=== PATIENT | female | born 1985 | race Caucasian/White ===

== ENCOUNTER 2016-05-14 08:19 | Emergency (ER) | payer OTHER ==
[~2016-05-14] VITALS: Ht 167.6 cm; Wt 100.0 kg
[~2016-05-14 08:19] MED LIST: CELEBREX200 MG PO; CITALOPRAM HBR20 MG; CLONAZEPAM0.5 MG; DEPO-PROVER150 MG/ML IM; FLOMAX0.4 MG PO; HYDROCODON-ACE1 EAC7 PO; IBUPROFEN200 M1 PO; IBUPROFEN600 MG PO; KLONOPIN0.5 M1 PO; LEVAQUIN500 MG PO; LEXAPRO10 MG PO; MOTRIN800 MG PO; NAPROSYN500 MG PO; REMERON15 M2 PO; SKELAXIN800 MG PO; TYLENOL EXTRA500 MG PO; ULTRAM50 MG PO; ZOLOFT50 MG PO
[2016-05-14 09:08] LABS: BASOPHIL COUNT 0.1 K/uL (0-0.1); EOSINOPHIL (%) 1.7 % (0-5); EOSINOPHIL COUNT 0.2 K/uL (0-0.3); HEMATOCRIT 46.3 % (36.0-46.0); IMMATURE GRANULOCYTE (%) 0.2 % (0.0-0.7); IMMATURE GRANULOCYTE COUNT 0.2 K/uL; LYMPHOCYTE COUNT 3.2 K/uL (1.0-2.8); MCH 30.9 PG (29.0-34.0); MCHC 36.1 G/DL (30.0-36.0); MCV 85.7 FL (83-99); MONOCYTE (%) 6.8 % (3-12); MONOCYTE COUNT 0.7 K/uL (0-0.8); NEUTROPHIL (%) 58.5 % (45-76); NEUTROPHIL COUNT 5.8 K/uL (1.8-6.4); PLATELET COUNT 269 K/uL (156-360); RBC DIS.WIDTH-CV 13.1 % (11.8-14.6); RBC DIS.WIDTH-SD 40.7 % (39-53); WHITE BLOOD COUNT 9.8 K/uL (4.1-10.2)
[2016-05-14 09:46] LABS: CHLORIDE 108 mEq/L (99-109); POTASSIUM 3.5 mEq/L (3.7-5.4); SODIUM 142 mEq/L (136-147)
[2016-05-14 09:48] LABS: GLUCOSE 85 mg/dL (70-99)
[2016-05-14 09:49] LABS: ANION GAP 12 MEQ/L (2-14)
[2016-05-14 09:50] LABS: TOTAL BILIRUBIN 0.5 mg/dL (0.0-1.0)
[2016-05-14 09:51] LABS: ALKALINE PHOSPHATASE 75 IU/L (3-129)
[2016-05-14 09:52] LABS: GFR ESTIMATE (CALCULATED) > 59 mL/min/
[2016-05-14 09:53] LABS: UREA NITROGEN (BUN) 7 mg/dL (9-23)
[2016-05-14 09:55] LABS: LIPASE 23 U/L (1.0-51.0)
[2016-05-14] MEDS ORDERED: TIZANIDINE HCL4 M1 PO (09:59)
[2016-05-14] MEDS ORDERED: PHENTERMINE H37.5 MG PO (10:00)
[2016-05-14] MEDS ORDERED: LYRICA75 MG PO (10:00)
[2016-05-14] MEDS ORDERED: TIZANIDINE HCL2 MG PO (10:01)
[2016-05-14 10:34] LABS: ADD MIUA? YES; BILIRUBIN NEGATIVE; BLOOD SMALL; COLOR STRAW ((YELLOW)); GLUCOSE (STRIP) NEGATIVE; KETONES 20; LEUKOCYTES NEGATIVE; NITRITE NEGATIVE; PROTEIN (STRIP) NEGATIVE; SPECIFIC GRAVITY 1.004 (1.000-1.030); UROBILINOGEN 0.2 MG/DL (0.2-1.0)
[2016-05-14 10:39] LABS: BACTERIA RARE /HPF; EPITHELIAL CELLS 2+ /HPF; MUCUS NONE SEEN /LPF; RED BLOOD CELLS 0-5 /HPF (0-5); UCUL ADDED? NO; WHITE BLOOD CELLS 0-5 /HPF (0-5)
[2016-05-14 10:50] LABS: INFLUENZA A VIRAL ANTIGEN NEGATIVE; INFLUENZA B VIRAL ANTIGEN NEGATIVE
[2016-05-14 12:03] VITALS: BP 137/102
== END 2016-05-14 12:04 | disposition home or self-care (01) ==
LOC: EXP 08:19 → EME 08:19 → EXP 12:04
PROVIDERS: Physician Assistant
DX: K29.70 Gastritis, unspecified, without bleeding (principal)
CPT/HCPCS: 80053; 81003; 83690; 85025; 87502; 99281; 99284; J2765; J7120

== ENCOUNTER → 2016-06-04 | Outpatient (CLI) | payer OTHER ==
[~2016-06-04] MED LIST changes: +LYRICA75 MG PO; +PHENTERMINE H37.5 MG PO; +TIZANIDINE HCL2 MG PO; +TIZANIDINE HCL4 M1 PO
== END | disposition home or self-care (01) ==
LOC: NUC 05-27 13:00
DX: R10.13 Epigastric pain (principal); R10.811 Right upper quadrant abdominal tenderness; R11.2 Nausea with vomiting, unspecified; K21.9 Gastro-esophageal reflux disease without esophagitis; R19.7 Diarrhea, unspecified
CPT/HCPCS: 78227; A9537; J2805

== ENCOUNTER 2017-01-29 12:32 | Emergency (ER) | payer OTHER ==
[~2017-01-29] VITALS: Ht 167.6 cm; Wt 97.1 kg
[2017-01-29 13:14] LABS: HEMATOCRIT 48.7 % (36.0-46.0); MCH 31.2 PG (29.0-34.0); MCHC 34.5 G/DL (30.0-36.0); MCV 90.4 FL (83-99); MEAN PLAT.VOLUME 9.2 uM^3 (9.5-12.4); PLATELET COUNT 297 K/uL (156-360); RBC DIS.WIDTH-CV 12.4 % (11.8-14.6); RBC DIS.WIDTH-SD 41.2 % (39-53); RED BLOOD COUNT 5.39 M/uL (3.80-5.20); WHITE BLOOD COUNT 10.4 K/uL (4.1-10.2)
[2017-01-29 13:43] LABS: ANION GAP 6 MEQ/L (2-14); CHLORIDE 107 MEQ/L (99-109); GFR ESTIMATE (CALCULATED) > 59 mL/min/; GLUCOSE 126 mg/dL (70-99); POTASSIUM 3.7 MEQ/L (3.7-5.4); SAMPLE HEMOLYSIS CHECK 0; SAMPLE ICTERIC CHECK 0; SAMPLE LIPEMIA CHECK 0; SODIUM 140 MEQ/L (136-147); UREA NITROGEN (BUN) 8 mg/dL (9-23)
[2017-01-29 13:47] LABS: TROP-I INTERPRETATION NEGATIVE; TROPONIN-I < 0.01 ng/mL (0.0-0.30)
[2017-01-29 15:37] VITALS: BP 155/98
== END 2017-01-29 15:35 | disposition home or self-care (01) ==
LOC: EME 12:32
DX: R51 Headache (principal); R07.9 Chest pain, unspecified; F41.9 Anxiety disorder, unspecified; R00.0 Tachycardia, unspecified; H53.149 Visual discomfort, unspecified; F17.200 Nicotine dependence, unspecified, uncomplicated
CPT/HCPCS: 70450; 70487; 71020; 80048; 84484; 85027; 93005; 99281; 99284; J1200; J1885; J2765; J7030